=== PATIENT | female | born 1980 | race Two or more races ===

== ENCOUNTER 2018-08-09 16:28 | Emergency (ER) | payer SELFPAY ==
[~2018-08-09] VITALS: Ht 157.5 cm; Wt 81.6 kg
[2018-08-09 18:59] VITALS: BP 124/52
[2018-08-09] MEDS ORDERED: KETOROLAC TROMETH 60MG/2ML VIAL IM ONE (19:15)
[2018-08-09] MEDS ORDERED: methylPREDNISolone SOD SUCC 125 MG/2 ML VL IM ONE (19:15)
[2018-08-09] MEDS ORDERED: LET TOPICAL SOLN 5 ML TOP ONE (20:00)
== END 2018-08-09 21:20 | disposition home or self-care (01) ==
LOC: ER 16:28
DX: T78.40XA Allergy, unspecified, initial encounter (principal); M79.5 Residual foreign body in soft tissue; Z91.010 Allergy to peanuts
CPT/HCPCS: 73130; 96372; 99284; J1885; J2930; J3490

== ENCOUNTER 2019-11-25 12:27 | Emergency (ER) | payer MEDICAID, OTHER ==
[~2019-11-25] VITALS: Ht 157.5 cm; Wt 79.4 kg
[2019-11-25 13:16] VITALS: BP 99/69
[2019-11-25] MEDS ORDERED: IBUPROFEN 800 MG TAB PO ONE (15:00)
== END 2019-11-25 15:20 | disposition home or self-care (01) ==
LOC: ER 12:27
DX: N83.201 Unspecified ovarian cyst, right side (principal); Z32.02 Encounter for pregnancy test, result negative
CPT/HCPCS: 76856; 81002; 81025